=== PATIENT | female | born 1930 | race Caucasian/White ===

== ENCOUNTER → 2016-11-17 | Outpatient (CLI) | payer MEDICARE, MEDICAID ==
[~2016-11-17] MED LIST: ALEN70SO3 PO; AMLO2.5T45 PO; CARB-25 PO; CARV25TA47 PO; CHOL100053 PO; DOCU100T8 PO; FURO40TA5 PO; GLIP10TA10 PO; METF10002 PO; METO5TAB69 PO; NITR0.4T SL; POTA-79 PO; TRAM50TA PO; VIC PO
== END | disposition home or self-care (01) ==
LOC: RAD 16:31
PROVIDERS: ATTEND Family Medicine
DX: R07.9 Chest pain, unspecified (principal); M47.895 Other spondylosis, thoracolumbar region
CPT/HCPCS: 71111